=== PATIENT | female | born 1970 | race Caucasian/White ===

== ENCOUNTER 2019-10-23 17:40 | Emergency (ER) | payer MEDICARE, MEDICAID, SELFPAY ==
--- NOTE | 2019-10-23 18:09 | ED.GENADULT ---
HPI - General Adult General Chief complaint: Shortness of Breath/Dyspnea Stated complaint: Shortness of breath Time Seen by Provider: 10/23/19 18:09 Source: patient Mode of arrival: ambulatory Limitations: no limitations History of Present Illness HPI narrative: 48-year-old female patient presents to the the medical center with complaints of shortness of breath and chest pain for the past 3 days. Patient states that she has been out of her Wellbutrin for the past 6 days that she normally takes for anxiety. Patient states that her doctors refilled it today however they sent in the wrong dose to the pharmacy. She states that the pharmacy sent the doctor's note however they have not fixed yet. Patient denies any cold symptoms such as fevers, cough, runny nose, sore throat. Patient states that she has had and had anxiety attacks before that have involved shortness of breath and chest pain. Patient states that she is also noticed a lump to her left side of the neck that has been getting increasingly bigger for the past couple of months. Patient does have a history of thyroid cancer with thyroidectomy. Related Data Allergies Allergy/AdvReac Type Severity Reaction Status Date / Time Sulfa (Sulfonamide Allergy Unknown hives Verified 10/23/19 18:32 Antibiotics) Review of Systems Review of Systems: Narrative: CONSTITUTIONAL: Denies fever, chills, or sweats. EYES: Denies visual changes, redness, or discharge. ENT: Denies rhinorrhea, congestion, sore throat, or otalgia. CARDIOVASCULAR: Positive left-sided chest pain, denies palpitations, or edema. RESPIRATORY: Denies cough, positive dyspnea. GASTROINTESTINAL: Denies abdominal pain, nausea, vomiting, or diarrhea. GENITOURINARY: Denies dysuria or hematuria. SKIN: Denies rash or itching. MUSCULOSKELETAL: Denies back pain, joint pain, or myalgia. NEUROLOGIC: Denies headache, numbness, or weakness. PSYCHIATRIC: Denies anxiety or depression. [facility] Past Medical History Medical History (Updated 10/23/19 @ 19:00 by JERZY Cerda) Arthritis Hypothyroidism TBI (traumatic brain injury) 1982 Surgical History Surgical History (Updated 10/23/19 @ 18:27 by JERZY Cerda) H/O thyroidectomy Due to cancer H/O: hysterectomy History of orthopedic surgery Rotator cuff x3 history Comments At the time of my signature I agree with nursing past medical history, surgical, social, and family history. There is no relevant family history pertinent to the presenting complaint. Exam Narrative: Exam Narrative: GENERAL: Well-appearing, well-nourished, and in no acute distress. HEAD: Normocephalic, atraumatic. EYES: PERRLA and EOMI. ENT: Nares clear, no rhinorrhea or epistaxis. Mucous membranes moist. Bilateral TMs are clear no erythema or foreign bodies in the canal. Posterior pharynx no erythema, tonsillar edema, exudates or lesions present. NECK: Supple. Left-sided cervical lymphadenopathy CHEST: Clear to auscultation. No respiratory distress. Patient able talk in clear complete sentences. No tripoding noted. HEART: Regular rate and rhythm. No murmur heard. Normal peripheral pulses. ABDOMEN: Soft, nontender, nondistended, normal active bowel sounds. EXTREMITIES: Normal range of motion. No edema. SKIN: Warm, dry, no rash. NEURO: No focal deficits. Alert and oriented x3. Course Reevaluation(s) Reevaluation #1: Notify patient that her x-ray is completely normal today as well as negative influenza test. Discussed with her that since her lungs are nice and clear and she does not have any cold symptoms this could be possibly anxiety due to being out of her Wellbutrin or possibly a withdrawal effect. Discussed and offered patient to send her to the ER for further evaluation and treatment. Patient refused and states that she will just call her primary doctor tomorrow and follow-up with her ENT as scheduled on November 02. Discussed with patient if her symptoms worsen before that time I would advise
[2019-10-23 18:20] VITALS: BP 112/77; PULSE 93; RESP 18; TEMP 36.9; O2SAT 100
--- NOTE | 2019-10-23 18:38 | ECG_ITS ---
Measurements Intervals [place] Rate: 74 P: 23 NM: 165 QRS: -9 QRSD: 97 T: 44 QT: 402 QTc: 447 Interpretive Statements SINUS RHYTHM DELAYED PRECORDIAL R/S TRANSITION BASELINE ARTIFACT- I, II, III, AVR, AVL, AVF BORDERLINE ECG Electronically Signed On 10-23-2019 19:42:38 [employer] by Demarcus Roach D.O.
== END 2019-10-23 19:37 | disposition home or self-care (01) ==
PROVIDERS: Emergency Provider Nurse Practitioner Family
DX: F41.9 Anxiety disorder, unspecified (principal); M19.90 Unspecified osteoarthritis, unspecified site; E03.9 Hypothyroidism, unspecified; Z87.820 Personal history of traumatic brain injury
CPT/HCPCS: 87081; 87804; 87880; 93005; 99213; G0463